=== PATIENT | female | born 1995 | race Two or more races ===

== ENCOUNTER 2023-06-28 11:11 | Observation (INO) | payer MEDICAID ==
[2023-06-28] MEDS ORDERED: PREN-96 PO (13:06)
[2023-06-28] MEDS ORDERED: FERR15DR18 PO (13:06)
== END 2023-06-28 13:18 | disposition home or self-care (01) ==
LOC: LDRP 11:11
PROVIDERS: ADMIT Obstetrics & Gynecology; ATTEND Obstetrics & Gynecology
DX: O40.3XX0 Polyhydramnios, third trimester, not applicable or unspecified (principal); O99.891 Other specified diseases and conditions complicating pregnancy; M54.9 Dorsalgia, unspecified; O26.893 Other specified pregnancy related conditions, third trimester; R10.2 Pelvic and perineal pain; N89.8 Other specified noninflammatory disorders of vagina; Z3A.33 33 weeks gestation of pregnancy
CPT/HCPCS: 59025; 76818; 81002; 94760; G0378

== ENCOUNTER 2023-07-01 12:10 | Observation (INO) | payer MEDICAID ==
[~2023-07-01 12:10] MED LIST: FERR15DR18 PO; PREN-96 PO
== END 2023-07-01 13:35 | disposition home or self-care (01) ==
LOC: UNDOADMOB 12:10 → LDRP 12:10 → UNDODISOB 13:35
PROVIDERS: ADMIT Obstetrics & Gynecology; ATTEND Obstetrics & Gynecology
DX: O40.3XX0 Polyhydramnios, third trimester, not applicable or unspecified (principal); Z3A.33 33 weeks gestation of pregnancy
CPT/HCPCS: 59025; 76818; 81002; 94760; G0378

== ENCOUNTER 2023-07-09 10:37 | Observation (INO) | payer MEDICAID ==
[~2023-07-09] VITALS: Ht 157.5 cm; Wt 56.7 kg
== END 2023-07-09 11:56 | disposition home or self-care (01) ==
LOC: LDRP 10:37 → UNDOADMOB 10:37 → LDRP 10:43
PROVIDERS: ADMIT Obstetrics & Gynecology; ATTEND Obstetrics & Gynecology
DX: O40.3XX0 Polyhydramnios, third trimester, not applicable or unspecified (principal); O26.893 Other specified pregnancy related conditions, third trimester; N89.8 Other specified noninflammatory disorders of vagina; O62.9 Abnormality of forces of labor, unspecified; Z3A.34 34 weeks gestation of pregnancy
CPT/HCPCS: 59025; 76818; 81002; 82948; G0378

== ENCOUNTER 2023-07-16 10:14 | Observation (INO) | payer MEDICAID | END 2023-07-16 12:45 | disposition home or self-care (01) | LOC: UNDOADMOB 10:14 → LDRP 10:14 | PROVIDERS: ADMIT Obstetrics & Gynecology; ATTEND Obstetrics & Gynecology | DX: O40.3XX0 Polyhydramnios, third trimester, not applicable or unspecified (principal); O24.419 Gestational diabetes mellitus in pregnancy, unspecified control; Z3A.35 35 weeks gestation of pregnancy | CPT/HCPCS: 59025; 76818; 81002; G0378 ==

== ENCOUNTER → 2023-07-16 | Outpatient (CLI) | payer MEDICAID ==
[2023-07-16 13:45] LABS: Basophils # (auto) 0 10 ^3/uL (0-0.2); Eosinophils # (auto) 0.1 10 ^3/uL (0-0.8); Hemoglobin 8.8 g/dL (12.2-16.2); Lymphocytes # (auto) 1.3 10 ^3/uL (0.4-5.4)
[2023-07-16 13:46] LABS: Basophils % (auto) 0.5 % (0.0-2.0); Eosinophils % (auto) 1.2 % (0.0-7.0); Hematocrit 29.7 % (36.0-46.0); Lymphocytes % (auto) 17.2 % (10.0-50.0); Mean Corpuscular Hemoglobin 19.1 pg (28.0-32.0); Mean Corpuscular Hgb Conc. 29.8 g/dL (32.0-36.0); Mean Corpuscular Volume 64.3 fL (80.0-100.0); Monocytes # (auto) 0.7 10 ^3/uL (0-1.3); Monocytes % (auto) 8.5 % (0.0-12.0); Neutrophils # (auto) 5.5 10 ^3/uL (1.6-8.6); Neutrophils % (auto) 72.6 % (37.0-80.0); Nucleated Red Blood Cells % 0.3 %; Red Blood Cells 4.62 10^6/uL (4.0-5.20); Red Cell Distribution Width 21.6 % (11.8-14.3); White Blood Cell 7.6 10^3/uL (4.4-10.8)
[2023-07-16 14:46] LABS: Anisocytosis Slight; Hypochromia Slight; Platelet Estimate Adequate
[2023-07-17 06:29] LABS: RPR Non Reactive (Non Reactive)
[2023-07-17 11:07] LABS: Treponema Pallidum Ab LC Non Reactive (Non Reactive)
== END | disposition home or self-care (01) ==
LOC: LAB 13:21
PROVIDERS: ATTEND Obstetrics & Gynecology
DX: Z11.3 Encounter for screening for infections with a predominantly sexual mode of transmission (principal)
CPT/HCPCS: 36415; 84112; 85025; 86592

== ENCOUNTER 2023-08-16 14:18 | Observation (INO) | payer MEDICAID | END 2023-08-16 16:02 | disposition home or self-care (01) | LOC: LDRP 14:18 | PROVIDERS: ADMIT Obstetrics & Gynecology; ATTEND Obstetrics & Gynecology | DX: O60.03 Preterm labor without delivery, third trimester (principal); O48.0 Post-term pregnancy; Z3A.40 40 weeks gestation of pregnancy | CPT/HCPCS: 59025; 76818; 81002; 94760; G0378 ==

== ENCOUNTER 2023-08-18 13:00 | Observation (INO) | payer MEDICAID | END 2023-08-18 14:50 | disposition home or self-care (01) | LOC: LDRP 13:00 → UNDOADMOB 13:00 → LDRP 13:11 → UNDODISOB 14:50 | PROVIDERS: ADMIT Obstetrics & Gynecology; ATTEND Obstetrics & Gynecology | DX: O48.0 Post-term pregnancy (principal); O99.891 Other specified diseases and conditions complicating pregnancy; N89.8 Other specified noninflammatory disorders of vagina; Z3A.40 40 weeks gestation of pregnancy | CPT/HCPCS: 59025; 76818; 81002; 94760; G0378 ==

== ENCOUNTER 2023-08-19 22:17 | Observation (INO) | payer MEDICAID ==
[~2023-08-19] VITALS: Ht 157.5 cm; Wt 60.8 kg
== END 2023-08-20 00:40 | disposition home or self-care (01) ==
LOC: LDRP 22:17
PROVIDERS: ADMIT Obstetrics & Gynecology; ATTEND Obstetrics & Gynecology
DX: O36.8130 Decreased fetal movements, third trimester, not applicable or unspecified (principal); O62.9 Abnormality of forces of labor, unspecified; Z3A.40 40 weeks gestation of pregnancy
CPT/HCPCS: 59025; 76818; 81002; 94760; G0378

== ENCOUNTER 2024-06-17 14:07 | Emergency (ER) | payer MEDICAID ==
[~2024-06-17] VITALS: Ht 157.5 cm; Wt 52.9 kg
[2024-06-17 16:06] LABS: COVID19 ANTIGEN SOFIA FIA POSITIVE (NEGATIVE)
[2024-06-17] MEDS: ACETAMINOPHEN 500 MG TAB PO ONE ×2 (16:09→16:28)
[2024-06-17] MEDS: cefTRIAXone SOD 1,000 MG VL IM ONE (16:09)
[2024-06-17 16:15] VITALS: BP 108/56; PULSE 125; RESP 16; O2SAT 99
[2024-06-17] MEDS ORDERED: ACET-1304 PO (16:44)
[2024-06-17] MEDS ORDERED: AZIT-185 PO (16:44)
[2024-06-17 17:08] VITALS: TEMP 99.1
== END 2024-06-17 17:13 | disposition home or self-care (01) ==
LOC: ER 14:07
DX: U07.1 COVID-19 (principal); J03.90 Acute tonsillitis, unspecified; H66.91 Otitis media, unspecified, right ear; Z79.899 Other long term (current) drug therapy
CPT/HCPCS: 36415; 87426; 96372; 99283; J0696

== ENCOUNTER 2025-02-28 14:51 | Emergency (ER) | payer MEDICAID ==
[~2025-02-28] VITALS: Ht 157.5 cm; Wt 50.5 kg
[~2025-02-28 14:51] MED LIST changes: +ACET-1304 PO; +AZIT-185 PO
[2025-02-28 16:42] LABS: Basophils # (auto) 0 10 ^3/uL (0-0.2); Basophils % (auto) 0.4 % (0.0-2.0); Eosinophils # (auto) 0.1 10 ^3/uL (0-0.8); Eosinophils % (auto) 0.9 % (0.0-7.0); Hematocrit 42.3 % (36.0-46.0); Hemoglobin 14.3 g/dL (12.2-16.2); Lymphocytes # (auto) 1.4 10 ^3/uL (0.4-5.4); Lymphocytes % (auto) 17.3 % (10.0-50.0); Mean Corpuscular Hemoglobin 28.9 pg (28.0-32.0); Mean Corpuscular Hgb Conc. 33.9 g/dL (32.0-36.0); Mean Corpuscular Volume 85.2 fL (80.0-100.0); Monocytes # (auto) 0.7 10 ^3/uL (0-1.3); Monocytes % (auto) 8.8 % (0.0-12.0); Neutrophils # (auto) 5.8 10 ^3/uL (1.6-8.6); Neutrophils % (auto) 72.6 % (37.0-80.0); Nucleated Red Blood Cells % 0.2 %; Platelet Count (auto) 311 10^3/uL (140-450); Red Blood Cells 4.97 10^6/uL (4.0-5.20); Red Cell Distribution Width 12.7 % (11.8-14.3)
[2025-02-28 16:55] LABS: Alanine Aminotransferase 13 U/L (7-40); Albumin 4.9 g/dL (3.2-4.8); Alkaline Phosphatase 125 U/L (46-116); Anion Gap 9 (5-15); Aspartate Aminotransferase 12 U/L (13-40); Blood Urea Nitrogen 11 mg/dL (9-23); Calcium 9.8 mg/dL (8.7-10.4); Carbon Dioxide 28 mmol/L (20-31); Chloride 103 mmol/L (98-107); Glucose 79 mg/dL (74-106); Lipase 46 U/L (12-53); Potassium 4.3 mmol/L (3.5-5.1); Sodium 140 mmol/L (136-145)
--- NOTE | 2025-02-28 16:55 | DVH ---
AP portable chest CLINICAL INDICATION: Chest pain FINDINGS: Heart size is normal. No infiltrates or effusions. No bony thoracic abnormalities. IMPRESSION: 1. Normal chest x-ray.
[2025-02-28 16:56] LABS: Bilirubin, Total 0.5 mg/dL (0.2-1.0)
--- NOTE | 2025-02-28 19:07 | DVH ---
Procedure: CT CT AB PEL WO CON-NO ORAL OR IV 02/28/2025 06:05 PM Indication: abd pain Comparison Study: None Technique: Axial images were obtained and reformatted in coronal and sagittal planes. All CT scans at this medical facility are performed using dose modulation techniques as appropriate to a performed e xam including the following: Automated exposure control was utilized; adjustment of the MA and/or KV according to patient size; and use of iterative reconstruction technique. CT Dose: CTDI volume is 5.3 mGy. Dose-length product is 265 mGy*cm FINDINGS: Lower Chest: Unremarkable. Hepatobiliary: Unremarkable. Spleen: Unremarkable. Pancreas: Unremarkable. Adrenal Glands: Unremarkable. tract: The kidneys are normal in size bilaterally without hydronephrosis or nephrolithiasis. The u rinary bladder is unremarkable. GI tract: The stomach is grossly normal in appearance. No evidence of small bowel obstruction. The la rge bowel is unremarkable. The appendix is normal. Lymphatics: No mesenteric, retroperitoneal or periportal lymphadenopathy. Vasculature: The abdominal aorta is normal in caliber. Pelvic Organs: Retroverted uterus. An IUD is in place. No suspicious adnexal lesion. Bones/soft tissues: No acute abnormality. Other: None. IMPRESSION: 1. No CT evidence of acute abnormality in the abdomen or pelvis. No hydronephrosis, ureterolithiasis or evidence of pancreatitis. Please note that evaluation of solid organs and vascular structures is l imited without IV contrast.
[2025-02-28] MEDS ORDERED: CEPH500C PO (19:56)
--- NOTE | 2025-02-28 19:57 | ED.PDOC ---
History of Present Illness HPI Comments 29-year-old female complaining of chest pain x2 days. States came on unprovoked. Sharp in nature. Nothing makes it better, nothing makes it worse. Denies any shortness a breath. Patient was complaining of right breast pain. States she did notice a small red area at the 12:00 p.m. region just above the nipple. States she was still has . Chief Complaint: Chest Pain Time Seen by MD: 15:21 Reviewed Notes: Nurses Notes Home Meds Active Scripts Azithromycin (ZITHROMAX TABLET) 250 Mg Tb, 250 MG PO DAILY, #6 TAB Prov:LONA JEFFERSON 06/17/24 Acetaminophen (Tylenol Extra Strength Fo) 500 Mg Tab, 500 MG PO QID, #30 TAB Prov:LONA JEFFERSON 06/17/24 Reported Medications Ferrous Sulfate (Iron Drops) 15 Mg/Ml Raul, 15 MG PO DAILY, DROP 06/28/23 Vit W/ Ferrous Fumara ( One Daily) Daily Tab, 1 TAB PO DAILY, #90 TAB 3 Refills 06/28/23 Information Source: Patient Mode of Arrival: Wheelchair Past Medical History PAST MEDICAL HISTORY: Denies Surgical History: Denies all surgeries MOTORMAN/WOMAN History: No Pertinent MOTORMAN/WOMAN History Family History Family History: Reviewed,noncontributory to illness Social History Smoker: Non-Smoker Alcohol: Denies ETOH Use Drugs: Denies Drug Use Lives In: Home Constitutional: denies: chills, diaphoresis, fatigue, fever, malaise, sweats, weakness, others EENTM: denies: blurred vision, double vision, ear bleeding, ear discharge, ear drainage, ear pain, ear ringing, eye pain, eye redness, hearing loss, mouth pain, mouth swelling, nasal discharge, nose bleeding, nose congestion, nose pain, photophobia, tearing, throat pain, throat swelling, voice changes, others Respiratory: denies: cough, hemoptysis, orthopnea, SOB at rest, shortness of breath, SOB with excertion, stridor, wheezing, others Cardiovascular: reports: chest pain Gastrointestinal: denies: abdomen distended, abdominal pain, blood streaked bowels, constipated, diarrhea, dysphagia, difficulty swallowing, hematemesis, melena, nausea, poor appetite, poor fluid intake, rectal bleeding, rectal pain, vomiting, others Genitourinary: denies: abnormal vagina bleeding, burning, dyspareunia, dysuria, flank pain, frequency, hematuria, incontinence, pain, , vagina discharge, urgency, others Neurological: denies: dizziness, fainting, headache, left sided numbness, left sided weakness, numbness, paresthesia, pre-existing deficit, right sided numbness, right sided weakness, seizure, speech problems, tingling, tremors, weakness, others Musculoskeletal: denies: back pain, gout, joint pain, joint swelling, muscle pain, muscle stiffness, neck pain, others Integumetry: denies: bruises, change in color, change in hair/nails, dryness, laceration, lesions, lumps, rash, wounds, others Physical Exam General Appearance: No Apparent Distress, Normal HEENT: Normal ENT Inspection, Pharynx Normal, TMs Normal Neck: Full Range of Motion, Non-Tender, Normal, Normal Inspection Respiratory: Chest Non-Tender, Lungs Clear, No Accessory Muscle Use, No Respiratory Distress, Normal Breath Sounds Cardiovascular: No Edema, No JVD, No Murmur, No Gallop, Normal Peripheral Pulses, Regular Rate/Rhythm Breast Exam: (R) Tenderness, None (Small area of redness noted at 12:00 p.m. just above the nipple on the right side. Areas tender to palpation, warm to touch.) Gastrointestinal: No Organomegaly, Non Tender, No Pulsatile Mass, Normal Bowel Sounds, Soft Genitalia: Deferred Pelvic: Deferred Rectal: Deferred Extremities: No calf tenderness, Normal capillary refill, Normal inspection, Normal range of motion, Non-tender, No pedal edema Musculoskeletal : Apperance: Normal Neurologic: Alert, research assistant professor II-XII nml as Tested, No Motor Deficits, Normal Affect, Normal Mood, No Sensory Deficits Cerebellar Function: Normal Reflexes: Normal Skin: Dry, Normal Color, Warm Lymphatic: No Adenopathy Was a procedure done? Was a procedure done?: No Differential Dx Considerations may include: Mastitis, chest wall pain, GERD, [place] X-Ray, Labs, Meds, VS Vital Signs Date Time Temp Pulse Resp B/P (MAP) Pulse Ox O2 Delivery O2 Flow Rate FiO2 02/28/25 15:13 97.9 130 18 118/78 (91) 97 97.9 02/28/25 15:02 124 Lab Test 02/28/25 18:26 02/28/25 15:47 02/28/25 14:54 Range/Units Troponin I High Sensitivity < 3 L < 3 L < 3 L </=34 ng/L White Blood Count 8.0 4.4-10.8 10^3/uL Red Blood Count 4.97 4.0-5.20 10^6/uL Hemoglobin 14.3 12.2-16.2 g/dL Hematocrit 42.3 36.0-46.0 % Mean Corpuscular Volume 85.2 80.0-100.0 fL Mean Corpuscular Hemoglobin 28.9 28.0-32.0 pg Mean Corpuscular Hemoglobin Concent 33.9 32.0-36.0 g/dL Red Cell Distribution Width 12.7 11.8-14.3 % Platelet Count 311 140-450 10^3/uL Mean Platelet Volume 7.3 6.9-10.8 fL Neutrophils (%) (Auto) 72.6 37.0-80.0 % Lymphocytes (%) (Auto) 17.3 10.0-50.0 % Monocytes (%) (Auto) 8.8 0.0-12.0 % Eosinophils (%) (Auto) 0.9 0.0-7.0 % Basophils (%) (Auto) 0.4 0.0-2.0 % Neutrophils # (Auto) 5.8 1.6-8.6 10 ^3/uL Lymphocytes # (Auto) 1.4 0.4-5.4 10 ^3/uL Monocytes # (Auto) 0.7 0-1.3 10 ^3/uL Eosinophils # (Auto) 0.1 0-0.8 10 ^3/uL Basophils # (Auto) 0 0-0.2 10 ^3/uL Nucleated Red Blood Cells 0.2 % Sodium Level 140 136-145 mmol/L Potassium Level 4.3 3.5-5.1 mmol/L Chloride Level 103 98-107 mmol/L Carbon Dioxide Level 28 20-31 mmol/L Anion Gap 9 5-15 Blood Urea Nitrogen 11 9-23 mg/dL Creatinine 0.61 0.550-1.02 mg/dL Glomerular Filtration Rate Calc 123 >90 mL/min BUN/Creatinine Ratio 18.0 10.0-20.0 Serum Glucose 79 74-106 mg/dL Calcium Level 9.8 8.7-10.4 mg/dL Total Bilirubin 0.5 0.2-1.0 mg/dL Aspartate Amino Transferase (AST) 12 L 13-40 U/L Alanine Aminotransferase (ALT) 13 7-40 U/L Alkaline Phosphatase 125 H 46-116 U/L Total Protein 8.0 5.7-8.2 g/dL Albumin 4.9 H 3.2-4.8 g/dL Lipase 46 12-53 U/L X-Ray, Labs, Meds, VS Comment Imaging: X-rays and CT scans were reviewed and interpreted by this provider, imaging shows no fractures and no pathological disease. Pending radiology review. Laboratory: Labs reviewed and interpreted by this provider. No significant abnormalities noted. Patient has prior medical visits reviewed. Med reconciliation performed Vital signs reviewed Time of 1ST Reevaluation: 19:57 Reevaluation 1ST: Improved Patient Education/Counseling: Diagnosis, Treatment, Need For Follow Up (Follow up in the emergency department in the next 24-48 hours if symptoms worsen. It was advised to follow up with your primary care doctor in the next 3-4 days for further evaluation.) Family Education/Counseling: Diagnosis, Treatment Departure 1 Departure Time of Disposition: 19:56 Impression: Primary Impression: Musculoskeletal chest pain Additional Impression: Mastitis Disposition: 01 HOME / SELF CARE / HOMELESS Condition: Fair e-Prescriptions Cephalexin Monohydrate (Cephalexin) 500 Mg Cap 1 CAP PO TID for 7 Days, #21 CAP Prov: DINO WADE 02/28/25 Discharged With: Self Critical Care Note Critical Care Time?: No Stability Stability form required: No Heart Score Heart Score: Heart Score Response (Comments) Value History Slightly Suspicious 0 EKG Normal 0 Age <45 0 Risk Factors No known risk factors 0 Troponin Normal limit 0 Total 0 DINO WADE Feb 28, 2025 19:57
[2025-02-28 20:52] VITALS: BP 110/68; PULSE 110; RESP 20; TEMP 99.5; O2SAT 98
--- NOTE | 2025-03-01 06:59 | ECG ---
Test Date: 2025-02-28 Test Time: 15:02:37 Pat Name: DANIEL MAHARAJ Department: ER Room: Gender: F [employer]ating [employer] Operator: SHO : [id number] Requested By: CHRISTOPHER ACOSTA Order Number: [id number] Reading MD: Imtiaz Fritz Measurements Intervals [place] Rate: 124 P: 79 MI: 158 QRS: 0 QRSD: 83 T: 20 QT: 291 QTc: 418 Interpretive Statements Sinus tachycardia Probable left atrial enlargement Low voltage, precordial leads RSR' in V1 or V2, right VCD or RVH Electronically Signed On 03-02-2025 17:08:36 PDT by Imtiaz Fritz Please click the below link to view image of tracing.
== END 2025-02-28 20:54 | disposition home or self-care (01) ==
LOC: ER 15:05
DX: N61.0 Mastitis without abscess (principal); R07.89 Other chest pain
CPT/HCPCS: 36415; 71045; 74176; 80053; 83690; 84484; 85025; 93005

== ENCOUNTER 2025-08-03 08:20 | Outpatient (CLI) | payer MEDICAID ==
[~2025-08-03 08:20] MED LIST changes: +CEPH500C PO
[2025-08-03 09:11] LABS: Triglycerides 43 mg/dL (< 150)
[2025-08-03 09:13] LABS: Cholesterol 150 mg/dL (< 200)
[2025-08-03 09:14] LABS: HDL Cholesterol 71 mg/dL (40-59)
[2025-08-03 11:28] LABS: Hepatitis A Total Antibody Positive (Negative); Hepatitis B Surface Antigen Negative (Negative); Hepatitis C Antibody Negative (Negative)
[2025-08-05 05:08] LABS: Chlamydia Trachomatis, NAA Negative (Negative); Neisseria gonorrhoeae, NAA Negative (Negative)
== END 2025-08-03 17:00 | disposition home or self-care (01) ==
LOC: LAB 08:20
PROVIDERS: ATTEND Nurse Practitioner
DX: Z00.00 Encounter for general adult medical examination without abnormal findings (principal)
CPT/HCPCS: 36415; 80061; 86703; 86704; 86706; 86708; 86735; 86762; 86765; 86780; 86787; 86803; 87340